=== PATIENT | male | born 1960 | race Caucasian/White ===

== ENCOUNTER → 2016-10-01 | Outpatient (CLI) | payer MEDICARE ==
--- NOTE | 2016-10-01 12:51 | CTL ---
EXAMINATION TYPE: CT Low Dose Lung DATE OF EXAM ORDERED: 10/01/2016 12:23 PM COMPARISON: Chest x-ray July HISTORY: . Lung cancer screening CT DLP: 116.[address] CTDI: 3.1 mGy Automated exposure control for dose reduction was used. SCREENING VISIT: Initial TECHNIQUE: Low dose computed tomography scan was performed through the chest at 1 mm thick sections a nd reconstructed images in the coronal plane at [address] DIAGNOSTIC QUALITY: Satisfactory FINDINGS: LUNG NODULES: None. LUNGS: COPD: Severity: Moderate Fibrosis: Severity: Mild Lymph nodes: None Other findings: Emphysematous changes are paraseptal, apical pleural scarring is suspected. RIGHT PLEURAL SPACE: Effusion: None Calcification: None Thickening: None Pneumothorax: None LEFT PLEURAL SPACE: Effusion: None Calcification: None Thickening: None Pneumothorax: None HEART: Heart Size: Small Coronary calcification: Mild Pericardial effusion: None OTHER FINDINGS: Upper abdomen: Unremarkable. Bony thorax: Degenerative disc changes are present. Supraclavicular region: Within normal limits Other: Pulmonary artery is dilated in relation to the descending aorta.1 emphysematous changes appear centrilobular and paraseptal. IMPRESSION: Consider pulmonary artery hypertension. FOLLOW UP CT CHEST RECOMMENDATION: Annual CT LUNG RAD: 2 benign
== END | disposition home or self-care (01) ==
LOC: RADCTMAIN 12:01
PROVIDERS: ATTEND Family Medicine
DX: Z09 Encounter for follow-up examination after completed treatment for conditions other than malignant neoplasm (principal); Z87.891 Personal history of nicotine dependence

== ENCOUNTER → 2016-10-09 | Outpatient (CLI) | payer MEDICARE ==
--- NOTE | 2016-10-10 07:59 | XR ---
EXAMINATION TYPE: XR ribs RT w pa chest xray DATE OF EXAM: 10/09/2016 1:47 PM COMPARISON: NONE HISTORY: Pain TECHNIQUE: Single view of the chest right views of the ribs are submitted. FINDINGS: The lungs are clear. No Evidence for pneumothorax. No evidence for focal contusion. Medi astinal structures are midline. Evaluation of the ribs fails to demonstrate evidence for displaced r ib fracture or secondary sign of rib fracture. IMPRESSION: Negative study
--- NOTE | 2016-10-10 08:00 | XR ---
EXAMINATION TYPE: XR scapula RT DATE OF EXAM: 10/09/2016 1:47 PM COMPARISON: NONE HISTORY: Pain status post fall TECHNIQUE: 2 views of the right scapula are submitted. FINDINGS: There is angulation of the scapular tip. Fracture is difficult to exclude. Correlate clinic ally with point tenderness. IMPRESSION: Scapular tip fracture is difficult to exclude.
== END | disposition home or self-care (01) ==
LOC: RADXRYALE 11:28
PROVIDERS: ATTEND Family Medicine
DX: S49.91XA Unspecified injury of right shoulder and upper arm, initial encounter (principal)